=== PATIENT | male | born 1985 | race Caucasian/White ===

== ENCOUNTER 2017-02-11 00:34 | Emergency (ER) | payer BC ==
[~2017-02-11] VITALS: Ht 180.3 cm; Wt 93.9 kg
[~2017-02-11 00:34] MED LIST: AUGMENTIN875 MG PO; HYDROCODON-ACE1 EAC7 PO; MOTRIN800 MG PO; ONE DAILY TABL1 EACH PO; PERCOCET 5/31 TABLET PO; SYNTHROID175 MCG PO
[2017-02-11 01:54] LABS: HEMATOCRIT 41.3 % (38.0-50.0); MCH 29.5 PG (29.0-34.0); MCHC 34.6 G/DL (30.0-36.0); MCV 85.2 FL (86-99); MEAN PLAT.VOLUME 9.6 uM^3 (9.0-12.4); PLATELET COUNT 203 K/uL (156-360); RBC DIS.WIDTH-CV 13.1 % (11.8-14.6); RBC DIS.WIDTH-SD 40.5 % (39-53); RED BLOOD COUNT 4.85 M/uL (4.00-5.50); WHITE BLOOD COUNT 9.3 K/uL (4.1-10.2)
[2017-02-11 02:02] LABS: CHLORIDE 107 mEq/L (99-109); POTASSIUM 3.8 mEq/L (3.7-5.4); SODIUM 138 mEq/L (136-147)
[2017-02-11 02:04] LABS: GLUCOSE 125 mg/dL (70-99)
[2017-02-11 02:05] LABS: ANION GAP 10 MEQ/L (2-14)
[2017-02-11 02:06] LABS: TOTAL BILIRUBIN 0.5 mg/dL (0.0-1.0)
[2017-02-11 02:07] LABS: ALKALINE PHOSPHATASE 76 IU/L (3-129)
[2017-02-11 02:08] LABS: GFR ESTIMATE (CALCULATED) > 59 mL/min/
[2017-02-11 02:09] LABS: UREA NITROGEN (BUN) 12 mg/dL (9-23)
[2017-02-11 02:11] LABS: LIPASE 24 U/L (1.0-51.0)
[2017-02-11 03:05] LABS: ADD MIUA? NO; BILIRUBIN NEGATIVE; BLOOD NEGATIVE; COLOR YELLOW ((YELLOW)); GLUCOSE (STRIP) NEGATIVE; KETONES NEGATIVE; LEUKOCYTES NEGATIVE; NITRITE NEGATIVE; PROTEIN (STRIP) NEGATIVE; UCUL ADDED? NO; UROBILINOGEN 0.2 MG/DL (0.2-1.0)
[2017-02-11] MEDS ORDERED: BENTYL20 MG PO (03:07)
[2017-02-11] MEDS ORDERED: METRONIDAZOLE500 MG PO (03:07)
[2017-02-11] MEDS ORDERED: CIPRO500 MG PO (03:07)
[2017-02-11 03:18] LABS: SPECIFIC GRAVITY 1.062 (1.000-1.030)
[2017-02-11 03:41] VITALS: BP 108/68
[2017-02-11 09:00] LABS: LYME DISEASE SEROLOGY SCREEN NEGATIVE (NEGATIVE)
== END 2017-02-11 04:06 | disposition home or self-care (01) ==
LOC: EME 00:34
PROVIDERS: Emergency Medicine
DX: K51.00 Ulcerative (chronic) pancolitis without complications (principal); E86.0 Dehydration; E03.9 Hypothyroidism, unspecified
CPT/HCPCS: 74177; 80053; 81003; 83605; 83690; 85027; 86618; 99281; 99285; J2270; J2405; J7030